=== PATIENT | male | born 1975 | race Caucasian/White ===

== ENCOUNTER 2017-01-20 01:30 | Emergency (ER) | payer BC ==
[~2017-01-20] VITALS: Ht 177.8 cm; Wt 78.1 kg
[2017-01-20] MEDS ORDERED: SKELAXIN800 MG PO (02:25)
[2017-01-20] MEDS ORDERED: ANAPROX DS550 M1 PO (02:25)
[2017-01-20 02:40] VITALS: BP 135/93
== END 2017-01-20 02:53 | disposition home or self-care (01) ==
LOC: EXP 01:30 → EME 01:30 → EXP 02:53
DX: M62.830 Muscle spasm of back (principal)
CPT/HCPCS: 99281; 99284